=== PATIENT | female | born 1950 | race Caucasian/White ===

== ENCOUNTER 2018-01-06 10:05 | Inpatient (IN) | payer MEDICARE ==
[2018-01-06] MEDS ORDERED: Albuterol/Ipratropium NEB.SOL* Albuterol 2.5 MG/Ipratropium 0.5 MG 3 ML INH ONE (10:07)
--- NOTE | 2018-01-06 10:46 | ED ---
Shortness of Breath - HPI Summary HPI Summary: Patient is a 67 y/o F BIBA w/ c/o SOB onsetting suddenly yesterday night. Patient's Lawrence is present in the room. She notes chest pain while coughing/breathing. Pain is reported to be located under her right breast. She also reports pelvic area edema for the past month and notes that she has a scheduled sonogram of her pelvic area coming up. Productive cough is reported as well. Phlegm is green-brown colored. Fever is denied. Patient is on 2 L o2 at home. She states that she was instructed to use o2 at night at home but notes that she has been using it more often recently. Patient claims that she has been on Bactrim for a week for her cough. EMS reports that patient was 74% o2 on 2 L. 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 She refuses bipap and cpap treatment due to her anxiety. PMHx of COPD, anxiety, and seizures. Last seizure was reported to be a year ago. PSHx of cholecystectomy. FMHx of [place] and CVA. PCP is Dr. Araujo. On triage, pain is denied, o2 is noted to alleviate Sx, nothing is reported to aggravate. Home mediations include lisinopril, suboxone, propranolol, keppra, and terazosin. She notes she used to be on methadone. In the room, she denies alcohol usage and drug usage. Patient smokes daily. Patient has a ventolin inhaler. She has not had her flu shot yet. Toradol allergy is noted. In room, BP is 109/79, o2 84%, and pulse 105. Allergies/Adverse Reactions: Allergies Allergy/AdvReac Type Severity Reaction Status Date / Time ketorolac [From Toradol] Allergy Airway Verified 01/06/18 10:36 Obstruction Home Medications: Home Medications Albuterol HFA INHALER* [Ventolin HFA Inhaler*] 1 puff INH BID 01/06/18 [History Confirmed 01/06/18] Buprenorphine/Naloxone SL TAB* [Suboxone 8-2 mg SL TAB*] 1 tab SL TID 01/06/18 [ History Confirmed 01/06/18] Gabapentin CAP(*) [Neurontin 300 CAP(*)] 300 mg PO TID 01/06/18 [History Confirmed 01/06/18] Lisinopril 40 mg PO DAILY 01/06/18 [History Confirmed 01/06/18] Propranolol TAB* [Inderal TAB*] 20 mg PO BID 01/06/18 [History Confirmed ] Terazosin CAP* [Hytrin CAP*] 1 mg PO BEDTIME 01/06/18 [History Confirmed ] levETIRAcetam [Levetiracetam] 500 mg PO TID 01/06/18 [History Confirmed 01/06/18 ] - History of Current Complaint Chief Complaint: EDShortnessOfBreath Time Seen by Provider: 01/06/18 10:07 Hx Obtained From: Patient, Family/Spice Fumigator - , EMS Onset/Duration: Sudden Onset, Lasting Days - SOB onset last night, Lasting Weeks - cough, Still Present Timing: Constant Current Severity: None - pain is denied Dyspnea At: Rest Aggrevating Factors: Nothing Alleviating Factors: Bronchodilators, EMS Tx, Oxygen Associated Signs & Symptoms: Cough (Productive), Chest Pain w/Cough - Allergy/Home Medications Allergies/Adverse Reactions: Allergies Allergy/AdvReac Type Severity Reaction Status Date / Time ketorolac [From Toradol] Allergy Airway Verified 01/06/18 10:36 Obstruction Home Medications: Home Medications Albuterol HFA INHALER* [Ventolin HFA Inhaler*] 1 puff INH BID 01/06/18 [History Confirmed 01/06/18] Buprenorphine/Naloxone SL TAB* [Suboxone 8-2 mg SL TAB*] 1 tab SL TID 01/06/18 [ History Confirmed 01/06/18] Gabapentin CAP(*) [Neurontin 300 CAP(*)] 300 mg PO TID 01/06/18 [History Confirmed 01/06/18] Lisinopril 40 mg PO DAILY 01/06/18 [History Confirmed 01/06/18] Propranolol TAB* [Inderal TAB*] 20 mg PO BID 01/06/18 [History Confirmed ] Terazosin CAP* [Hytrin CAP*] 1 mg PO BEDTIME 01/06/18 [History Confirmed ] levETIRAcetam [Levetiracetam] 500 mg PO TID 01/06/18 [History Confirmed 01/06/18 ] PMH/Surg Hx/FS Hx/Imm Hx Previously Healthy: No Respiratory History: Reports: Hx Chronic Obstructive Pulmonary Disease (COPD) Neurological History: Reports: Hx Seizures Psychiatric History: Reports: Hx Anxiety, Hx Substance Abuse - on suboxone, states she was on methadone prior - Surgical History Surgery Procedure, Year, and Place: appendectomy - Immunization History Date of Influenza Vaccine: not in 2018 Infectious Disease History: No Infectious Disease History: Denies: Traveled Outside the [place] in Last 30 Days - Family History Known Family History: Positive: Cardiac Disease - mother w/ [place] , Other - mother w/ CVA - Social History Lives: With Family Alcohol Use: None Substance Use Type: Reports: Prescribed - suboxone Smoking Status (MU): Heavy Every Day Tobacco Smoker Type: Cigarettes Review of Systems Negative: Fever Positive: Chest Pain Positive: Shortness Of Breath, Cough Positive: Other - pelvic pain, swelling; US scheduled Positive: no symptoms reported Positive: Edema - pelvic area Skin: Negative Neurological: Negative Psychological: Normal All Other Systems Reviewed And Are Negative: Yes Physical Exam - Summary Physical Exam Summary: Appearance: ill-appearing, moderate respiratory distress, able to speak full sentences; well-nourished, harsh, congested, non-productive cough Skin: Warm, color reflects adequate perfusion, dry Head: Normal Head/Face inspection, atraumatic Eyes: Conjunctiva clear ENT: Normal inspection Neck: Supple, no nodes, no JVD Respiratory: diffuse expiratory wheezes throughout, shallow respirations, using accessory muscles Cardio: tachycardic, No murmur, pulses normal, brisk capillary refill Abdomen: Soft, nontender, no masses appreciated, no bruits, non-distended, no guarding, no rebound Bowel sounds: Present Musculoskeletal: Strength Intact/ROM intact, no calf tenderness, no edema. Psychological: Normal Neuro: Alert, muscle tone normal, no focal deficit Triage Information Reviewed: Yes Vital Signs On Initial Exam: Initial Vitals Temp Pulse Resp BP Pulse Ox 97.8 F 106 22 109/79 89 01/06/18 10:10 01/06/18 10:10 01/06/18 10:10 01/06/18 10:10 01/06/18 10:10 Vital Signs Reviewed: Yes Diagnostics - Vital Signs Vital Signs Temp Pulse Resp BP Pulse Ox 01/06/18 10:10 97.8 F 106 22 109/79 89 - Laboratory Result Diagrams: 01/07/18 05:51 01/07/18 05:51 Lab Statement: Any lab studies that have been ordered have been reviewed, and results considered in the medical decision making process. - Radiology CXR Xray Interpretation: Positive (See Comments) Radiology Interpretation Completed By: Radiologist - IMPRESSION: CONSOLIDATION OF THE RIGHT MID AND LOWER LUNG. RECOMMEND FOLLOW-UP UNTIL RESOLUTION TO EXCLUDE UNDERLYING PULMONARY PARENCHYMAL PATHOLOGY. THIS REPORT WAS REVIEWED BY ED PHYSICIAN. - EKG 1049 Cardiac Rate: NL - rate of 98 bpm EKG Rhythm: Sinus Rhythm ST Segment: Non-Specific Ectopy: None EKG Interpretation: nl AV/IV CT, nl axis, nl QTc, low voltage Re-Evaluation - Re-Evaluation First Eval Re-Evaluation Time: 10:48 Change: Improved Comment: Patient is on nasal cannula. She reports relief from SOB after neb treatment. Patient has unlabored breaths and can speak in complete sentences. Some wheezes are present, but diminished. Second Eval Re-Evaluation Time: 11:27 Change: Improved Comment: Results of CXR was discussed. o2 sat 92%, patient is tachy, able to speak in full sentences. Patient reports that she is hungry. Course/Dx - Course Assessment/Plan: Patient is a 67 y/o F BIBA w/ c/o SOB onsetting suddenly yesterday night. She notes chest pain while coughing/breathing. Pain is reported to be located under her right breast. Productive cough is reported as well. Phlegm is green-brown colored. Fever is denied. Patient is on 2 L o2 at home. Patient claims that she has been on Bactrim for a week for her cough. EMS reports that patient was 74% o2 on 2 L. 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 Cpap/bipap was declined by pt due to patient's anxiety. On physical exam, patient is noted to be ill- appearing, moderate respiratory distress, but able to speak in full sentences. A harsh, congested, non-productive cough is appreciated. Patient has diffuse expiratory wheezes throughout, shallow respirations using accessory muscles. Abdomen was normal. In the room, patient as given an albuterol nebulizer treatment, fluids, and IV antibiotics. Sepsis protocol was initiated for source pneumonia, outpatient acquired with zosyn and levofloxacin. 1048 - Patient has unlabored breaths and can speak in complete sentences. Some wheezes are present , but diminished. EKG at 1049 showed normal sinus rhythm and rate of 98 bpm, non-specific ST, no ectopy, normal AV/IV CT, normal axis, normal QTc, and low voltage. Patient was negative for flu. Labs showed lactic acid 0.6, BNP 266, CRP 166.91, ddimer 460, wbc 15.2. Arterial blood gas showed ABG pH 7.27, pCO2 55 , pO2 60, O2 sat 92.7, base excess -2.1. CXR IMPRESSION: CONSOLIDATION OF THE RIGHT MID AND LOWER LUNG. RECOMMEND FOLLOW-UP UNTIL RESOLUTION TO EXCLUDE UNDERLYING PULMONARY PARENCHYMAL PATHOLOGY. THIS REPORT WAS REVIEWED BY ED PHYSICIAN. Patients case was discussed with Dr. Vazquez at 1122. Dr. Lozano accepts patient for admission to [facility]. 1127 - Results of CXR was discussed with patient. o2 sat 92%, patient is tachy, able to speak in full sentences. Dx of sepsis secondary to right lower and right middle lobe pneumonia, COPD exacerbation with acute and chronic hypoxic respiratory failure, tobacco abuse disorder. - Diagnoses Differential Diagnosis/HQI/PQRI: Positive: Bronchitis, COPD Exacerbation, Pneumonia, Pulmonary Embolism, Pulmonary Edema Provider Diagnoses: Right lower lobe pneumonia, COPD exacerbation, Sepsis, Acute and chronic respiratory failure with hypoxia, Tobacco abuse disorder, Pelvic pain in female - Physician Notifications Discussed Care of Patient With: Odalis Lozaon Time Discussed With Above Provider: 11:22 Instructed by Provider To: Other - Patient's case was discussed with Dr. Lozano at 1122. - Critical Care Time Critical Care Time: 30-74 min - 30 minutes CC Discharge - Sign-Out/Discharge Documenting (check all that apply): Patient Departure - admit - Discharge Plan Condition: Stable Disposition: ADMITTED TO [facility] - Billing Disposition and Condition Condition: STABLE Disposition: Admitted to [facility] - Attestation Statements Document Initiated by Marilyn: Yes Documenting Scribe: Darrin Bill Provider For Whom Marilyn is Documenting (Include Credential): Lorin Hunter MD Scribe Attestation: Darrin Herrera , scribed for Lorin Hunter MD on 01/08/18 at 0413. Scribe Documentation Reviewed: Yes Provider Attestation: The documentation as recorded by the odiliaibe, Darrin Bill accurately reflects the service I personally performed and the decisions made by me, Lorin Hunter MD
[2018-01-06 11:09] LABS: ABS Basophils 0 10^3/ul (0-0.2); ABS Eosinophils 0 10^3/ul (0-0.6); ABS Lymphocytes 0.8 10^3/ul (1.0-4.8); ABS Monocytes 1.4 10^3/ul (0-0.8); ABS Neutrophils 12.9 10^3/ul (1.5-7.7); ABS Nucleated RBC 0 10^3/ul; Eosinophil % 0.1 % (0-6); Hematocrit 33 % (35-47); Hemoglobin 10.7 g/dl (12.0-16.0); Lymphocyte % 5.5 % (25-47); Mean Corpuscular HGB Conc 32 g/dl (31-36); Mean Corpuscular Hemoglobin 30 pg (27-31); Mean Corpuscular Volume 94 fL (80-97); Mean Platelet Volume 8.5 um3 (7.4-10.4); Nucleated Red Blood Cells % 0; Platelet Count 242 10^3/ul (150-450); Red Blood Count 3.54 10^6/ul (4.00-5.40); Red Cell Distribution Width 14 % (10.5-15); White Blood Count 15.2 10^3/ul (3.5-10.8)
[2018-01-06] MEDS ORDERED: Levofloxacin 750 MG IVPREMIX(* 750 MG/150 ML BAG IVPB ONE (11:17)
[2018-01-06] MEDS ORDERED: Piperacillin/Tazobac ADVAN(*) 3.375 GM in NS 0.9% 100 ML* 100 ML IVPB ONE (11:17)
[2018-01-06] MEDS ORDERED: NS 0.9% 1000 ML*IV.FLUID IV ONE (11:17)
[2018-01-06 11:18] LABS: INR 1.02 (0.77-1.02)
[2018-01-06 11:27] LABS: EGFR Non-African American 43.4 (>60)
--- NOTE | 2018-01-06 11:35 | RAD ---
HISTORY: SOB COMPARISONS: None VIEWS: 1: frontal AP view of the chest at 11:14 AM FINDINGS: LINES AND TUBES: None. CARDIOMEDIASTINAL SILHOUETTE: The cardiomediastinal silhouette is normal for portable technique. PLEURA: The costophrenic angles are sharp. No pleural abnormalities are noted. LUNG PARENCHYMA: There is confluent alveolar opacification of the right mid and lower lung field. ABDOMEN: The upper abdomen is clear. There is no subphrenic gas. BONES AND SOFT TISSUES: There is diffuse osteopenia. Degenerative changes are noted of the spine. IMPRESSION: CONSOLIDATION OF THE RIGHT MID AND LOWER LUNG. RECOMMEND FOLLOW-UP UNTIL RESOLUTION TO EXCLUDE UNDERLYING PULMONARY PARENCHYMAL PATHOLOGY.
[2018-01-06 12:06] LABS: Urine Appearance Cloudy; Urine Blood Negative (Negative); Urine Color Yellow; Urine Ketones Negative (Negative); Urine Protein 2+(100 mg/dL) (Negative); Urine Red Blood Cell Trace(0-2/hpf) (Absent); Urine Specific Gravity 1.014 (1.010-1.030); Urine Urobilinogen Negative (Negative); Urine White Blood Cell Absent (Absent)
[2018-01-06] MEDS ORDERED: Albuterol/Ipratropium NEB.SOL* Albuterol 2.5 MG/Ipratropium 0.5 MG 3 ML INH PRN (12:16)
[2018-01-06] MEDS: methylPREDNISolone SOD 40 MG* 1 ML VIAL IV SCH (13:32)
[2018-01-06] MEDS: Heparin VIAL(*) 5000 UNITS/ML VIAL (FIVE THOUSAND) SUBCUT SCH ×2 (13:33→20:34)
[2018-01-06] MEDS: Gabapentin CAP(*) 300 MG PO SCH ×2 (13:33→20:35)
[2018-01-06] MEDS: Buprenorphine/Naloxone 8-2 MG SL TAB* 1 TAB SL SCH ×2 (13:33→20:35)
[2018-01-06] MEDS: levETIRAcetam TAB* 500 MG PO SCH ×2 (13:33→20:36)
[2018-01-06] MEDS: NS 0.9% 1000 ML* 1,000 ML IV SCH (13:54)
[2018-01-06] MEDS ORDERED: Albuterol/Ipratropium NEB.SOL* Albuterol 2.5 MG/Ipratropium 0.5 MG 3 ML INH SCH (15:00)
--- NOTE | 2018-01-06 17:08 | HP ---
CC: WARREN Gillis at [facility].* HISTORY AND PHYSICAL: DATE OF ADMISSION: 01/06/18 TIME OF EVALUATION: 11:30 a.m. CHIEF COMPLAINT: Shortness of breath. HISTORY OF PRESENT ILLNESS: Mrs. Medina is a 67-year-old lady with a past medical history of COPD, on home oxygen at night; chronic pain; seizure disorder; hypertension, who presents to the emergency room with complaints of shortness of breath. The patient states that 5 to 6 days ago, she started to have body aches, shortness of breath, and cough. Her provider prescribed Bactrim, but she had no improvement of her symptoms. She states that overnight, her shortness of breath got really worse and EMS was called. As per EMS report, the patient's oxygen saturation was 74% on 2 L nasal cannula. On arrival to ED, the patient had wheezes throughout. She denies fever, but did have some chills. She also complains of right-sided pleuritic chest pain that started last night. The patient states that now, she is being followed at [facility] where she was transitioned from methadone to Suboxone. She also describes a pelvic mass that is being worked up as outpatient. She has no complaints of nausea, vomiting, diarrhea or urinary complaints at this time. PAST MEDICAL HISTORY: 1. COPD, on nocturnal home O2, 2 L per minute. 2. Tobacco abuse. 3. Chronic pain. 4. Seizure disorder. 5. Hypertension. PAST SURGICAL HISTORY: Status post appendectomy. ALLERGIES: With KETOROLAC, the patient had airway obstruction. FAMILY HISTORY: Mother had history of CAD and CVA. SOCIAL HISTORY: The patient is a smoker since young age. She says that now she smokes half a pack a day, no history of alcohol or illicit drug use. Surrogate decision maker is her , Luis Antonio Reed, phone number [phone]. REVIEW OF SYSTEMS: A 14-point review of systems was performed and all the pertinent negative and positive findings are in the HPI. PHYSICAL EXAMINATION GENERAL: The patient is a thin elderly lady, that appears older than stated age , sitting up in the ED stretcher, in no acute distress. VITAL SIGNS: Temperature 99.5, heart rate is 105, respiratory rate is 22, oxygen saturation is 95% on 4 L nasal cannula, blood pressure is 114/63. CHEST: Breath sounds present bilaterally with scattered wheezes and crackles on the left base. CVS: Normal S1, S2. Regular rate and rhythm. ABDOMEN: Soft, nontender. Bowel sounds are present. EXTREMITIES: No edema. NEUROLOGIC: She is alert and oriented x3. Able to move all 4 extremities. She has significant scoliosis. LABORATORY AND IMAGING DATA: The patient had a CBC that showed a WBC of 15.2, hemoglobin of 10.7, hematocrit 33, platelets of 242 with 84% neutrophils. ESR is 78. INR is 1.02, D-Dimer is 160. ABG showed pH of 7.27, pCO2 of 55, pO2 of 60, bicarb of 23. Oxygen saturation 92%. Chemistry showed a sodium of 145, potassium of 5.1, chloride of 102, bicarb of 26, BUN of 39, creatinine of 1.2, glucose of 124, lactic acid of 0.6, calcium of 8.8. LFTs are normal. CRP is 166, BNP is 266, procalcitonin is 0.1. Urinalysis show 2+ protein and hyaline casts. Rapid influenza test was negative. Her chest x-ray showed consolidation of the right mid and lower lung. EKG done on 01/06/18 at 10:49 a.m. showed sinus rhythm at 98 beats per minute with no ST-T changes, no prior EKG to compare. ASSESSMENT AND PLAN: Mrs. Medina is a 67-year-old lady with a past medical history of chronic obstructive pulmonary disease, on nocturnal home oxygen 2 L; tobacco abuse; hypertension; seizure disorder; chronic pain who presents to the emergency room with complaints of chills, cough, severe shortness of breath, found to have pneumonia. 1. Sepsis. The patient's presentation is compatible with sepsis as she has tachycardia, tachypnea, and leukocytosis. Source is pneumonia. 2. Acute hypercapnic/hypoxemic respiratory failure secondary to COPD exacerbation and pneumonia. The patient's ABG in the emergency room showed pH of 7.27 with a pCO2 of 55. At this point, the patient appears to be comfortable on 4 L of oxygen via nasal cannula with normal mental status and no accessory muscle use or findings of respiratory fatigue. We are going to continue to monitor her, but if she developed decompensation, we are going to repeat her ABG as she may require BiPAP if her respiratory failure worsens. 3. Community-acquired pneumonia. The patient has not had any recent admissions and we are going to continue the levofloxacin started in the emergency room. Influenza rapid test was negative. We are going to check Pneumococcal and Legionella antigen. Blood culture was already obtained in the emergency room and we are going to order sputum cultures. 4. Acute chronic obstructive pulmonary disease exacerbation secondary to pneumonia. The patient will receive IV antibiotics, IV steroids, and bronchodilators. 5. Acute kidney injury. The patient appears to be dehydrated, but her urinalysis also showed 2+ protein with hyaline casts suggestive of nephritis. I am going to check random urine protein and random urine creatinine to have an idea of her 24- hour proteinuria. We will monitor her for IgA nephropathy in the setting of acute respiratory disease. 6. Chronic pain. The patient will be continued on her Suboxone. 7. Seizure disorder. The patient will be continued on Keppra. 8. Hypertension. Her blood pressure is stable at this time. We are going to continue her terazosin, propranolol, and lisinopril with holding parameters. 9. History of pelvic lesion. We will obtain records from [facility] to clarify what is the issue that she is being worked up for as outpatient. 10. Deep venous thrombosis prophylaxis. The patient has a score of 3 on the DVT Prophylaxis Assessment Guide and she will be started on subcutaneous heparin. 11. Code status was discussed with the patient. She wishes to be a full code. TIME SPENT: Approximately 50 minutes were spent with patient interview, medical records review, physical examination to complete this admission, more than half of this time was spent [id number] with the patient and coordination of care. [id number]/[facility] #: [id number] SADIE
[2018-01-06] MEDS ORDERED: Mouth Piece, Nicotine* 1 EACH CARTRIDGE INH PRN ×2 (17:46)
[2018-01-06] MEDS ORDERED: Nicotine GUM* 2 MG PO PRN (17:46)
[2018-01-06] MEDS ORDERED: Nicotine Inhaler* 10 MG AMP INH PRN (17:46)
[2018-01-06] MEDS: LORazepam TAB(*) 0.5 MG PO PRN (18:39)
[2018-01-06] MEDS: Nicotine PATCH 21 MG/24 HR* PATCH TRANSDERM SCH (18:39)
[2018-01-06] MEDS: Albuterol/Ipratropium NEB.SOL* Albuterol 2.5 MG/Ipratropium 0.5 MG 3 ML INH SCH (19:19)
[2018-01-06] MEDS: Mometasone/Formoter 100/5 MDI INH SCH (19:20)
[2018-01-06] MEDS: Terazosin CAP* 1 MG PO SCH (20:23)
[2018-01-06] MEDS: Propranolol TAB* 20 MG PO SCH (20:23)
[2018-01-06] MEDS ORDERED: Albuterol HFA INHALER* 8 gm MDI INH SCH (21:00)
[2018-01-07] MEDS: methylPREDNISolone SOD 40 MG* 1 ML VIAL IV SCH ×3 (00:32→16:12)
[2018-01-07] MEDS: LORazepam TAB(*) 0.5 MG PO PRN ×3 (00:37→21:26)
[2018-01-07] MEDS: NS 0.9% 1000 ML* 1,000 ML IV SCH (01:19)
[2018-01-07] MEDS: Albuterol/Ipratropium NEB.SOL* Albuterol 2.5 MG/Ipratropium 0.5 MG 3 ML INH SCH ×2 (01:34→07:43)
[2018-01-07] MEDS: Heparin VIAL(*) 5000 UNITS/ML VIAL (FIVE THOUSAND) SUBCUT SCH ×3 (05:02→21:41)
[2018-01-07 06:11] LABS: ABS Basophils 0 10^3/ul (0-0.2); ABS Eosinophils 0 10^3/ul (0-0.6); ABS Lymphocytes 0.5 10^3/ul (1.0-4.8); ABS Monocytes 0.3 10^3/ul (0-0.8); ABS Neutrophils 9.5 10^3/ul (1.5-7.7); ABS Nucleated RBC 0 10^3/ul; Eosinophil % 0 % (0-6); Hematocrit 26 % (35-47); Hemoglobin 8.4 g/dl (12.0-16.0); Lymphocyte % 4.7 % (25-47); Mean Corpuscular HGB Conc 33 g/dl (31-36); Mean Corpuscular Hemoglobin 31 pg (27-31); Mean Corpuscular Volume 94 fL (80-97); Mean Platelet Volume 8.3 um3 (7.4-10.4); Nucleated Red Blood Cells % 0; Platelet Count 192 10^3/ul (150-450); Red Blood Count 2.72 10^6/ul (4.00-5.40); Red Cell Distribution Width 13 % (10.5-15); White Blood Count 10.3 10^3/ul (3.5-10.8)
[2018-01-07 06:31] LABS: EGFR Non-African American 58.5 (>60)
[2018-01-07] MEDS: Mometasone/Formoter 100/5 MDI INH SCH ×2 (07:43→20:09)
[2018-01-07] MEDS: Nicotine PATCH 21 MG/24 HR* PATCH TRANSDERM SCH (08:20)
[2018-01-07] MEDS: Propranolol TAB* 20 MG PO SCH ×2 (08:22→21:25)
[2018-01-07] MEDS: levETIRAcetam TAB* 500 MG PO SCH ×3 (08:22→21:26)
[2018-01-07] MEDS: Gabapentin CAP(*) 300 MG PO SCH ×3 (08:22→21:25)
[2018-01-07] MEDS: Buprenorphine/Naloxone 8-2 MG SL TAB* 1 TAB SL SCH ×3 (08:23→21:25)
[2018-01-07] MEDS ORDERED: Lisinopril TAB* 10 MG PO SCH (09:00)
[2018-01-07] MEDS ORDERED: Levofloxacin 750 MG IVPREMIX(* 750 MG/150 ML BAG IVPB SCH (11:00)
[2018-01-07] MEDS: Levofloxacin 500 MG IVPREMIX(* 500 MG/100 ML BAG IVPB SCH (11:31)
--- NOTE | 2018-01-07 13:36 | PN ---
Subjective Date of Service: 01/07/18 Interval History: HOSPITALIST PROGRESS NOTE Patient seen and examined at bedside. Care reviewed and d/w Marichuy Chand RN. She feels better today. Breathing is much improved at rest, but still has significant dyspnea with exertion. Right sided chest pain is resolved. Family History: Unchanged from Admission Social History: Unchanged from Admission Past Medical History: Unchanged from Admission Objective Active Medications: Albuterol/Ipratropium (Duoneb (Albuterol 2.5 Mg/Ipratropium 0.5 Mg)) 1 neb INH Q2H PRN PRN Reason: SOB/WHEEZING Buprenorphine/Naloxone (Suboxone 8-2 Mg Sl Tab*) 1 tab.sl SL TID [facility] Last Admin: 01/07/18 13:13 Dose: 1 tab.sl Device (Nicotine Mouth Piece*) 1 each INH .USE WITH NICOTROL PRN PRN Reason: CRAVING Gabapentin (Neurontin Cap(*)) 300 mg PO TID [facility] Last Admin: 01/07/18 13:13 Dose: 300 mg Heparin Sodium (Porcine) (Heparin Vial(*)) 5,000 units SUBCUT Q8HR [facility] Last Admin: 01/07/18 13:14 Dose: Not Given Levofloxacin/Dextrose (Levaquin 500 Mg Ivpremix(*)) 500 mg in 100 mls @ 100 mls /hr IVPB Q24H [facility] Last Admin: 01/07/18 11:31 Dose: 100 mls/hr Levetiracetam (Keppra Tab*) 500 mg PO TID [facility] Last Admin: 01/07/18 13:13 Dose: 500 mg Lorazepam (Ativan Tab(*)) 0.5 mg PO Q6H PRN PRN Reason: ANXIETY Last Admin: 01/07/18 10:15 Dose: 0.5 mg Methylprednisolone Sodium Succinate (Solu-Medrol 40 Mg) 40 mg IV Q12H [facility] Last Admin: 01/07/18 13:14 Dose: 40 mg Mometasone Furoate/Formoterol Fumar (Dulera 100/5 Mdi*) 2 puff INH BID [facility] Last Admin: 01/07/18 07:43 Dose: 2 puff Nicotine (Nicotine Inhaler*) 10 mg INH Q2H PRN PRN Reason: CRAVING Nicotine (Nicotine Patch 21 Mg/24 Hr*) 1 patch TRANSDERM DAILY@0800 [facility] Last Admin: 01/07/18 08:20 Dose: 1 patch Nicotine Polacrilex (Nicotine Gum*) 2 mg PO Q2H PRN PRN Reason: CRAVING Pharmacy Profile Note (Nicotine Patch Removal Note*) 1 note PATCH OFF 2100 [facility] Propranolol HCl (Inderal Tab*) 20 mg PO BID [facility] Last Admin: 01/07/18 08:22 Dose: 20 mg Terazosin HCl (Hytrin Cap*) 1 mg PO BEDTIME [facility] Last Admin: 01/06/18 20:23 Dose: Not Given Vital Signs - 8 hr 01/07/18 01/07/18 01/07/18 07:43 07:53 08:22 Temperature 97.4 F Pulse Rate 80 81 Respiratory 16 18 18 Rate Blood Pressure 111/68 (mmHg) O2 Sat by Pulse 96 100 Oximetry 01/07/18 01/07/18 01/07/18 08:23 10:15 11:31 Temperature Pulse Rate Respiratory 18 18 16 Rate Blood Pressure (mmHg) O2 Sat by Pulse Oximetry 01/07/18 01/07/18 11:33 13:13 Temperature Pulse Rate Respiratory 16 20 Rate Blood Pressure (mmHg) O2 Sat by Pulse Oximetry Oxygen Devices in Use Now: Nasal Cannula Appearance: Pleasant lady sitting up in bed in NAD. Eyes: No Scleral Icterus Ears/Nose/Mouth/Throat: Mucous Membranes Moist Neck: Trachea Midline Respiratory: Symmetrical Chest Expansion and Respiratory Effort, - - BS+ bilaterally with right base crackles, no other added sounds Cardiovascular: RRR - Normal S1 and S2 Neurological: Alert and Oriented x 3, NL Muscle Strength and Tone Result Diagrams: 01/07/18 05:51 01/07/18 05:51 Assess/Plan/Problems-Billing Assessment: Mrs Medina is a 67yo F with PMH of COPD on nocturnal O2, tobacco abuse , seizure disorder, chronic pain, HTN, who presented to ED with c/o dyspnea, found to have COPD exacerbation secondary to pneumonia. - Patient Problems (1) Sepsis Comment: - Presentation compatible with sepsis with tachycardia, tachypnea, and leukocytosis. - Source is pneumonia. (2) Acute and chronic respiratory failure with hypoxia Comment: - Secondary to pneumonia - improving. (3) COPD exacerbation Comment: - Improving. - Secondary to pneumonia. - Continue bronchodilators and steroids. (4) Pneumonia Comment: - Community acquired pneumonia. - Legionella and pneumococcal Ag are negative. (5) SHARON (acute kidney injury) Comment: - Likely secondary to dehydration - resolved. - Repeat UA to see if proteinuria persists. (6) Chronic pain Comment: - Continue Suboxone. (7) Seizure disorder Comment: - Continue Keppra. (8) DVT prophylaxis Comment: - SQ heparin. (9) Full code status Status and Disposition: Inpatient for management of CAP and respiratory failure.
[2018-01-07] MEDS ORDERED: Nicotine Patch Removal NOTE PATCH OFF SCH (21:00)
[2018-01-07] MEDS: Terazosin CAP* 1 MG PO SCH (21:25)
[2018-01-08] MEDS ORDERED: diPHENhydraMINE PO* 25 MG PO ONE (03:00)
[2018-01-08] MEDS ORDERED: Melatonin 3 MG TAB PO ONE (04:00)
[2018-01-08] MEDS: Heparin VIAL(*) 5000 UNITS/ML VIAL (FIVE THOUSAND) SUBCUT SCH ×2 (06:09→14:39)
[2018-01-08 07:12] LABS: ABS Basophils 0 10^3/ul (0-0.2); ABS Eosinophils 0 10^3/ul (0-0.6); ABS Lymphocytes 0.7 10^3/ul (1.0-4.8); ABS Monocytes 0.5 10^3/ul (0-0.8); ABS Nucleated RBC 0 10^3/ul; Eosinophil % 0 % (0-6); Hematocrit 27 % (35-47); Hemoglobin 8.7 g/dl (12.0-16.0); Lymphocyte % 6.5 % (25-47); Mean Corpuscular HGB Conc 32 g/dl (31-36); Mean Corpuscular Hemoglobin 30 pg (27-31); Mean Corpuscular Volume 94 fL (80-97); Nucleated Red Blood Cells % 0; Platelet Count 267 10^3/ul (150-450); Red Blood Count 2.85 10^6/ul (4.00-5.40); Red Cell Distribution Width 14 % (10.5-15); White Blood Count 11.2 10^3/ul (3.5-10.8)
[2018-01-08 07:28] LABS: EGFR Non-African American 75.7 (>60)
[2018-01-08] MEDS: levETIRAcetam TAB* 500 MG PO SCH ×2 (08:24→14:38)
[2018-01-08] MEDS: Gabapentin CAP(*) 300 MG PO SCH ×2 (08:25→14:38)
[2018-01-08] MEDS: Nicotine PATCH 21 MG/24 HR* PATCH TRANSDERM SCH (08:26)
[2018-01-08 08:28] LABS: Urine Appearance Clear; Urine Blood Negative (Negative); Urine Color Straw; Urine Ketones Negative (Negative); Urine Protein Negative (Negative); Urine Specific Gravity 1.012 (1.010-1.030); Urine Urobilinogen Negative (Negative)
[2018-01-08] MEDS: Buprenorphine/Naloxone 8-2 MG SL TAB* 1 TAB SL SCH ×2 (08:38→14:39)
[2018-01-08] MEDS: LORazepam TAB(*) 0.5 MG PO PRN ×2 (08:38→14:38)
[2018-01-08] MEDS: Propranolol TAB* 20 MG PO SCH (08:38)
[2018-01-08] MEDS: Mometasone/Formoter 100/5 MDI INH SCH (11:24)
[2018-01-08] MEDS: Levofloxacin 500 MG IVPREMIX(* 500 MG/100 ML BAG IVPB SCH (12:33)
[2018-01-08] MEDS: methylPREDNISolone SOD 40 MG* 1 ML VIAL IV SCH ×2 (13:05)
[2018-01-08 14:46] VITALS: BP 120/71
== END 2018-01-08 15:30 | disposition home or self-care (01) | DRG 871 ==
LOC: ED 10:05 → MEDTELE 11:49 → MED 01-08 03:31
PROVIDERS: ADMIT Internal Medicine; ATTEND Internal Medicine
DX: A41.9 Sepsis, unspecified organism (principal); J96.21 Acute and chronic respiratory failure with hypoxia; J18.9 Pneumonia, unspecified organism; J96.22 Acute and chronic respiratory failure with hypercapnia; J44.0 Chronic obstructive pulmonary disease with (acute) lower respiratory infection; J44.1 Chronic obstructive pulmonary disease with (acute) exacerbation; N17.9 Acute kidney failure, unspecified; G40.909 Epilepsy, unspecified, not intractable, without status epilepticus; G89.29 Other chronic pain; N94.9 Unspecified condition associated with female genital organs and menstrual cycle; I10 Essential (primary) hypertension; F41.9 Anxiety disorder, unspecified; Z99.81 Dependence on supplemental oxygen; Z82.49 Family history of ischemic heart disease and other diseases of the circulatory system; Z88.6 Allergy status to analgesic agent; Z82.3 Family history of stroke; Z90.49 Acquired absence of other specified parts of digestive tract; F17.210 Nicotine dependence, cigarettes, uncomplicated
CPT/HCPCS: 36415; 71045; 80048; 80053; 81003; 81015; 82150; 82550; 82553; 82570; 82803; 83605; 83690; 83880; 84145; 84156; 84484; 85025; 85379; 85610; 85652; 85730; 86140; 87040; 87070; 87205; 87899; 93005; 94640; 99284; 99406; A9270-GY; J1644; J1956; J2543; J2920